=== PATIENT | male | born 1995 | race Two or more races ===

== ENCOUNTER 2023-02-02 18:22 | Emergency (ER) | payer MEDICAID ==
[~2023-02-02] VITALS: Ht 167.6 cm; Wt 63.7 kg
[2023-02-02] MEDS ORDERED: ONDANSETRON ODT 4 MG TAB PO ONE (22:15)
[2023-02-02] MEDS ORDERED: IPRATROPIUM BROM 0.5 MG/2.5ML INH SOL NEB ONE (22:15)
[2023-02-02] MEDS ORDERED: IBUPROFEN 600 MG TAB PO ONE (22:15)
[2023-02-02] MEDS ORDERED: ALBUTEROL SULF 2.5 MG/0.5ML(0.5%) NEB SOLN NEB ONE (22:15)
[2023-02-02] MEDS ORDERED: DexAMETHasone SOD PHOS 10MG/1ML VIAL INJ IM ONE (22:15)
[2023-02-02] MEDS ORDERED: ALBUAER3 IN (22:24)
[2023-02-02] MEDS ORDERED: PRED20TA2 PO (22:24)
[2023-02-02] MEDS ORDERED: AUG875T PO (22:24)
[2023-02-02] MEDS ORDERED: ZOFR4T PO (22:24)
[2023-02-02] MEDS ORDERED: IBU600T PO (22:24)
[2023-02-02] MEDS ORDERED: FLUT1SPR5 (22:24)
[2023-02-02 23:29] VITALS: BP 119/63; PULSE 82; RESP 17; TEMP 98.8; O2SAT 99
== END 2023-02-02 23:33 | disposition home or self-care (01) ==
LOC: ER 18:22
DX: J32.9 Chronic sinusitis, unspecified (principal); J20.9 Acute bronchitis, unspecified; R51.9 Headache, unspecified; Z20.822 Contact with and (suspected) exposure to COVID-19
CPT/HCPCS: 36415; 70450; 71045; 87426; 94640; 96372; 99285; J1100; J7644; Q0162